=== PATIENT | female | born 1955 | race Caucasian/White ===

== ENCOUNTER → 2022-06-25 09:28 | Outpatient (CLI) | payer MEDICARE, MEDICAID, SELFPAY ==
--- NOTE | 2022-06-25 | DI.NM.S_ITS ---
PROCEDURE: [place] BONE SCAN WHOLE BODY RADIOPHARMACEUTICAL: 19.5 mCi Tc-99m MDP IV. INDICATIONS: BREAST CANCER TECHNIQUE: Delayed whole-body scintigrams were obtained approximately 3-4 hours after intravenous injection of radiotracer. Anterior and posterior views were acquired from vertex to feet. COMPARISON: [facility], [place], [place] BONE SCAN WHOLE BODY, 03/18/2021, 12:58. FINDINGS: There is normal radiotracer activity seen in the urinary system and bladder. Mild scattered degenerative changes are seen in the upper and lower extremities. Mild lumbar spinal curvature. Mild radiotracer activity is seen in the left lower ribs, likely corresponding to previously reported PET-CT lesions. 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 Other mild foci on previous bone scan from 2020 are less conspicuous. 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 Dictated by: Cristino Montoya M.D. on 06/25/2022 at 13:44 Approved by: Cristino Montoya M.D. on 06/25/2022 at 13:50
== END ==
PROVIDERS: Referring Provider Internal Medicine Hematology & Oncology; Visit Provider Internal Medicine Hematology & Oncology
DX: C50.919 Malignant neoplasm of unspecified site of unspecified female breast (principal)
CPT/HCPCS: 78306; A9503

== ENCOUNTER → 2022-09-25 10:53 | Outpatient (CLI) | payer MEDICARE, MEDICAID, SELFPAY ==
--- NOTE | 2022-09-25 | DI.NM.S_ITS ---
PROCEDURE: [place] BONE SCAN WHOLE BODY RADIOPHARMACEUTICAL: 20.6 mCi Tc-99m MDP IV. INDICATIONS: BREAST CANCER TECHNIQUE: Delayed whole-body scintigrams were obtained approximately 3-4 hours after intravenous injection of radiotracer. Anterior and posterior views were acquired from vertex to feet. COMPARISON: [facility], CT, CT CHEST WITH CONTRAST, 04/18/2022, 12:36. [facility], CT, CT ABDOMEN PELVIS WITH CONTRAST, 04/18/2022, 12:36. [place], [place], [place] BONE SCAN WHOLE BODY, 06/25/2022, 10:02. FINDINGS: No abnormal uptake of radiotracer is seen within the bones of the calvarium or bones of the face. No abnormal radiotracer uptake is seen within the cervical spine, thoracic spine, or lumbar spine. No abnormal uptake of radiotracer is seen within the sternum. Several ribs demonstrate abnormally increased radiotracer activity. A mild degree of symmetric uptake is seen within the region of the shoulders, which is attributed to degenerative change and is not considered to be pathologic. No abnormal uptake is seen within the upper extremities. No abnormal uptake is seen within the pelvis or within the lower extremities. No abnormal soft tissue uptake is seen. The kidneys demonstrate normal positions. IMPRESSION: Improved appearance of the lower ribs, with mild increased abnormal radiotracer activity. Dictated by: David Leung M.D. on 09/25/2022 at 17:32 Approved by: David Leung M.D. on 09/25/2022 at 17:34
== END ==
PROVIDERS: Referring Provider Internal Medicine Hematology & Oncology; Visit Provider Internal Medicine Hematology & Oncology
DX: C50.919 Malignant neoplasm of unspecified site of unspecified female breast (principal)
CPT/HCPCS: 78306; A9503

== ENCOUNTER → 2022-12-04 10:44 | Outpatient (CLI) | payer MEDICARE, MEDICAID, SELFPAY ==
--- NOTE | 2022-12-04 10:46 | DI.NM.S_ITS ---
PROCEDURE: [place] BONE SCAN WHOLE BODY RADIOPHARMACEUTICAL: 20.8 mCi Tc-99m MDP IV. INDICATIONS: Malignant neoplasm of endometrium TECHNIQUE: Delayed whole-body scintigrams were obtained approximately 3-4 hours after intravenous injection of radiotracer. Anterior and posterior views were acquired from vertex to feet. COMPARISON: [facility], CT, CT ERAZO, 07/22/2022, 14:10. [facility], [place], XR RIBS BILATERAL, 04/22/2021, 11:02. [facility], CT, CT ABDOMEN PELVIS WITH CONTRAST, 03/08/2021, 13:10. [facility], CT, CT CHEST WITH CONTRAST, 03/08/2021, 13:10. [place], [place], PET NECK TO MID THIGH, 10/24/2020, 13:45. [place], [place] BONE SCAN WHOLE BODY, 09/25/2022, 14:05. [place], PET NECK TO MID THIGH, 01/24/2022, 13:43. [facility], CT, CT CHEST WITH CONTRAST, 04/18/2022, 12:36. [facility], CT, CT ABDOMEN PELVIS WITH CONTRAST, 04/18/2022, 12:36. [facility], [place], [place] BONE SCAN WHOLE BODY, 03/18/2021, 12:58. [place], [place] BONE SCAN WHOLE BODY, 06/25/2022, 10:02. FINDINGS: There is mildly increased activity in multiple left anterior ribs, unchanged. Mildly increased activity in the inferior tip of the right scapula is also stable. 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 There is a focal uptake in the left mandible, unchanged and presumably secondary to dental disease. No focal lesions are identified in skull, sternum, clavicles, bony pelvis, and visualized shafts of the long bones. IMPRESSION: Stable bone scan. Dictated by: Kathryn Garcia M.D. on 12/04/2022 at 15:52 Approved by: Kathryn Garcia M.D. on 12/05/2022 at 10:29
== END ==
PROVIDERS: Referring Provider Internal Medicine Hematology & Oncology; Visit Provider Internal Medicine Hematology & Oncology
DX: C50.411 Malignant neoplasm of upper-outer quadrant of right female breast (principal); C54.1 Malignant neoplasm of endometrium
CPT/HCPCS: 78306; A9503